=== PATIENT | male | born 1980 | race Native Hawaiian/Other Pacific Islander ===

== ENCOUNTER 2020-01-06 21:30 | Emergency (ER) | payer OTHER ==
[2020-01-06] MEDS ORDERED: IBUPROFEN 800 MG TAB PO ONE (22:27)
[2020-01-06] MEDS ORDERED: traMADol 50 MG TAB PO ONE (22:28)
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
[2020-01-07 01:19] VITALS: BP 125/85
== END 2020-01-07 01:18 | disposition home or self-care (01) ==
LOC: ED 21:30
DX: S16.1XXA Strain of muscle, fascia and tendon at neck level, initial encounter (principal); S39.012A Strain of muscle, fascia and tendon of lower back, initial encounter; S43.491A Other sprain of right shoulder joint, initial encounter; V89.2XXA Person injured in unspecified motor-vehicle accident, traffic, initial encounter; Y93.89 Activity, other specified; Y92.410 Unspecified street and highway as the place of occurrence of the external cause; Y99.8 Other external cause status
CPT/HCPCS: 72100; 72125

== ENCOUNTER 2020-01-31 09:31 | Emergency (ER) | payer SELFPAY ==
[2020-01-31 09:41] VITALS: BP 130/92
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
--- NOTE | 2020-01-31 10:15 | XRay Report ---
CHEST 2 VIEWS INDICATION: Cough, fever. COMPARISON: No relevant comparative imaging. FINDINGS: Support devices: None. Heart: Within normal limits. Pulmonary vasculature: Normal. Lungs/pleura: Mild patchy opacities of the left lower lobe, streaky opacities in bilateral midlung an d an irregular nodular opacity of the right upper lobe. No lymphadenopathy. No pleural effusion. No pneumothorax. Additional findings: None. IMPRESSION: 1. Left lower lobe pneumonia without consolidation. 2. Less well-defined abnormalities in the right upper lobe and bilateral midlung. 3. Consider CT chest without contrast for further clarification. Signer Name: Chandu Reed MD Signed: 01/31/2020 10:11 AM Workstation Name: [id number]
[2020-01-31] MEDS ORDERED: AZITHROMYCIN 250 MG TAB PO ONE (10:56)
[2020-01-31] MEDS ORDERED: ACETAMINOPEN W/CODEINE 120-12MG ORAL LIQD 5 ML PO ONE (10:56)
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
== END 2020-01-31 12:10 | disposition home or self-care (01) ==
LOC: ED 09:31
DX: J40 Bronchitis, not specified as acute or chronic (principal); J18.9 Pneumonia, unspecified organism; Z90.49 Acquired absence of other specified parts of digestive tract; Z79.899 Other long term (current) drug therapy; Z03.818 Encounter for observation for suspected exposure to other biological agents ruled out
CPT/HCPCS: 71046; 71250